=== PATIENT | female | born 1970 | race Caucasian/White ===

== ENCOUNTER 2018-03-30 20:10 | Emergency (ER) | payer BC ==
[2018-03-30 20:54] VITALS: BP 118/72
--- NOTE | 2018-03-30 21:02 | ED Physician Documentation ---
General Adult - HISTORIAN Historian: patient - HPI Stated Complaint: laceration Chief Complaint: Laceration/Recheck/Suture Onset: hours (1) Timing: still present Severity: mild Further Comments: yes (she was using a peeled potato inspector and she has a laceration on the ring finger and thumb of right hand.) Last known Well Code/Unknown Code: Unknown - ROS CONST: no problems - PAST HX Past History: none Other History: none Surgeries/Procedures: none Immunizations: UTD Allergies/Adverse Reactions: Allergies Allergy/AdvReac Type Severity Reaction Status Date / Time No Known Allergies Allergy Verified 03/30/18 20:48 Home Medications: Ambulatory Orders Medication Instructions Recorded NK 03/30/18 - SOCIAL HX Smoking History: non-smoker Alcohol Use: none Drug Use: none - FAMILY HX Family History: No - VITAL SIGNS Vital Signs: Vital Signs Temp Pulse Resp BP Pulse Ox 99 H 18 118/72 99 03/30/18 21:51 03/30/18 21:51 03/30/18 21:51 03/30/18 21:51 - REVIEWED ASSESSMENTS Nursing Assessment Reviewed: Yes Vitals Reviewed: Yes ED Results Lab/Radiology - Orders Orders: ED Orders Category Date Time Status Apply/change dressing QID Care 03/30/18 21:03 Active Neomycin/Bacitracin/Polymyxinb [Triple Antibiotic Med 03/30/18 21:03 Discontinued Ointment] 1 each TP NOW ONE General Adult Physical Exam - PHYSICAL EXAM GENERAL APPEARANCE: no distress EENT: eye inspection normal NECK: normal inspection RESPIRATORY: no resp distress, chest non-tender, breath sounds normal CVS: reg rate & rhythm, heart sounds normal, equal pulses, no murmur ABDOMEN: soft, normal bowel sounds, no distension SKIN: warm/dry, other (right hand 2 cm laceration on the ring finger and abrasion on thumb . FROM and sensation ) EXTREMITIES: non-tender, normal range of motion, no evidence of injury, no edema NEURO: oriented X3, CN's nml as tested, motor nml, sensation nml, mood/affect nml Discharge Clincal Impression: Laceration Referrals: Janette Nash MD [Primary Care Provider] - 2 Days Additional Instructions: 1. Keep pressure dressing on for 24 hours 2. IF any bleeding that you cannot control occurs return to ER 3. Ice area if possible 4. Watch for symptoms of infection - redness, swelling,drainage, fever or other concerning symptoms 5. Return to ER for any concerns Condition: Stable Disposition: 01 HOME, SELF-CARE Decision to Admit: NO Date of Decison to Admit: 03/30/18 Decision Time: 21:02
[2018-03-30] MEDS ORDERED: NEOMYCIN/BACITRACIN/POLYMYXINB 1 EACH OINT.PACK TP ONE (21:03)
== END 2018-03-30 21:03 | disposition home or self-care (01) ==
LOC: ED 20:10
DX: S61.214A Laceration without foreign body of right ring finger without damage to nail, initial encounter (principal); S61.011A Laceration without foreign body of right thumb without damage to nail, initial encounter; W26.8XXA Contact with other sharp object(s), not elsewhere classified, initial encounter; Y92.000 Kitchen of unspecified non-institutional (private) residence as the place of occurrence of the external cause; Y93.G3 Activity, cooking and baking; Y99.9 Unspecified external cause status